=== PATIENT | female | born 1970 | race Caucasian/White ===

== ENCOUNTER 2019-10-01 09:41 | Day surgery (SDC) | payer OTHER, SELFPAY ==
[2019-09-30 07:42] VITALS: BMI 28.4
[2019-10-01] VITALS (8 sets, daily range): BP systolic 125–141; BP diastolic 81–93; PULSE 65–81; RESP 15–20; TEMP 35.9–36.4; O2SAT 98–100; BMI 29.0
--- NOTE | 2019-10-01 10:04 | PM.PREOP ---
Pre-operative Note Interval Note History & Physical reviewed/Exam performed by Physician: Yes Changes to H&P: No
[2019-10-01] MEDS: LACTATED RINGERS 1,000 ML 100 ML IV (10:19)
[2019-10-01] MEDS: SCOPOLAMINE 1 PATCH TOP (10:28)
[2019-10-01] MEDS: CEFAZOLIN 2 GM/100 ML FROZ.PIGGY IV (10:30)
--- NOTE | 2019-10-01 10:49 | SUR.OPER ---
Supine on padded OR bed, head on pillow, arms secured on padded arm boards at <90 degrees abduction, legs uncrossed, safety belt at thigh, tape over blanket over lower legs.
[2019-10-01] MEDS: BUPIVACAINE 0.25% (PF) VIAL 30 ML INJ (10:55)
--- NOTE | 2019-10-01 11:23 | PM.OP.1 ---
Operative Date/Time/Diagnoses Date of procedure: 10/01/19 Time of procedure: 11:23 Pre-op diagnosis: Umbilical hernia Post-op diagnosis: same Procedure & Clinicians Procedure: Open umbilical hernia repair Same procedure as scheduled: Yes Indications: 48-year-old female with a symptomatic umbilical hernia presents for elective repair Surgeon: Markie Ricks Anesthesia Type: General Operative Notes Findings: 1 cm umbilical fascial defect Estimated Blood Loss (mL): 5 Procedure in detail: Patient was brought to the operating room placed supine on the table. Bilateral lower extremity compression devices were applied. General anesthesia was inducedand they were intubated with an endotracheal tube. They received 2 g of Ancef prior to skin incision. They were prepped and draped in sterile fashion. A time-out was performed ensure the correct patient procedure necessary equipment within the operating room. A curvilinear incision was made inferior to the umbilicus. The subcutaneous tissues were divided. The umbilical hernia was identified and was dissected off the umbilicus and circumferentially. The umbilical hernia sac was opened carefully using Taylor and contained viable omentum. The hernia sac was then closed with 3 0 Vicryl suture. The sac was reduced into the abdomen and the fascia was cleared from above. The fascial defect was approximately 1 cm in diameter. The fascial edges were then reapproximated with a [id number] 0 PDS suture. The subcutaneous tissues were reapproximated using 3 0 Vicryl skin closed with 4 0 Monocryl upon by the application of Dermabond and Steri-Strips. Sponge instrument count at the end of the operation was correct. Patient tolerated procedure well was extubated and transferred to postoperative care unit in stable condition. Complications: none Post-operative Condition: stable Disposition: same day surgery
[2019-10-01] MEDS: HYDROCODONE/ACET 5/325 TABLET 1 TAB PO (11:41)
== END 2019-10-01 12:30 | disposition home or self-care (01) ==
PROVIDERS: PCP Family Medicine; Visit Provider Surgery
PROC: (CPT 49585; principal; 2019-10-01 11:15)
DX: K42.9 Umbilical hernia without obstruction or gangrene (principal)
CPT/HCPCS: 49585; J0690; J1100; J1885; J2250; J2405; J2704; J3010